=== PATIENT | male | born 2000 | race Caucasian/White ===

== ENCOUNTER 2021-04-28 12:22 | Emergency (ER) | payer BC, SELFPAY ==
--- NOTE | ~2021-04-28 | XR_ITS ---
EXAMINATION: XR foot LT min 3V DATE: 04/28/2021 15:53 INDICATION: Left foot pain and swelling. TECHNIQUE: 4 views of left foot were obtained. COMPARISON: None. FINDINGS: There is mild hallux valgus. No fracture. Joint spaces are normal. IMPRESSION: 1. Mild hallux valgus. Reviewed, dictated and finalized at location A. [facility]TER IMPRESSION: 1. Mild hallux valgus.
[2021-04-28 12:47] VITALS: BP 125/69; PULSE 102; RESP 16; TEMP 36.4; O2SAT 98
[2021-04-28] MEDS: IBUPROFEN 600 MG TABLET PO (15:49)
--- NOTE | 2021-04-28 16:38 | ED.GENADULT ---
HPI - General Adult General Chief complaint: Extremity Problem,Nontraumatic Stated complaint: L FOOT SWELLING Time Seen by Provider: 04/28/21 15:21 Source: patient Mode of arrival: ambulatory Limitations: no limitations History of Present Illness HPI narrative: Patient is a 20-year-old male with chief complaint of left foot pain and swelling over the past few days. Patient reports the pain is and swelling is worse in the evening after he has been standing and walking on the foot all day. Patient denies any known mechanisms of injury. He reports a discomfort is more to the lateral area of the left foot. He denies any wounds, ulcerations. Patient reports it is painful to walk on the foot and he has been using today to avoid weightbearing. Related Data Allergies Allergy/AdvReac Type Severity Reaction Status Date / Time No Known Allergies Allergy Mild Unverified 02/06/18 17:02 Review of Systems Review of Systems: CONSTITUTIONAL: Denies fever, chills, or sweats. EYES: Denies visual changes, redness, or discharge. ENT: Denies rhinorrhea, congestion, sore throat, or otalgia. CARDIOVASCULAR: Denies chest pain, palpitations, or edema. RESPIRATORY: Denies cough or dyspnea. GASTROINTESTINAL: Denies abdominal pain, nausea, vomiting, or diarrhea. GENITOURINARY: Denies dysuria or hematuria. SKIN: Denies rash or itching. MUSCULOSKELETAL: Pain and swelling to left foot denies back pain, joint pain, or myalgia. NEUROLOGIC: Denies headache, numbness, dizziness, or weakness. PSYCHIATRIC: Denies anxiety or depression. Exam Narrative: GENERAL: Well-appearing, well-nourished, and in no acute distress. HEAD: Normocephalic, atraumatic. EYES: PERRLA and EOMI. CHEST:No respiratory distress. No tachypnea. EXTREMITIES: Swelling to left foot, tenderness to lateral area of foot. Not erythematous. No open wounds or ulcers. Sensation and cap refill intact. Pulses present. SKIN: Warm, dry, no rash. NEURO: No focal deficits. Alert and oriented x3. PSYCH: Normal mood and affect. Course Vital Signs Vital signs: Vital Signs Temperature 97.5 F L 04/28/21 12:47 Pulse Rate 102 H 04/28/21 12:47 Respiratory Rate 16 04/28/21 12:47 Blood Pressure 125/69 04/28/21 12:47 Pulse Oximetry 98 04/28/21 12:47 Temperature 97.5 F L 04/28/21 12:47 Pulse Rate 102 H 04/28/21 12:47 Respiratory Rate 16 04/28/21 12:47 Blood Pressure 125/69 04/28/21 12:47 Pulse Oximetry 98 04/28/21 12:47 Medical Decision Making MDM Narrative Medical decision making narrative: No fracture noted on exam, no sign of cellulitis. Discussed with patient he likely has sprain/strain and needs follow up with primary care or orthopedics for further evaluation of tendons and ligaments. Discussed with patient that if redness, heat, or other signs of infection present then he needs to return. Differential Diagnosis Differential Diagnosis: fracture, sprain, strain, cellulitis, ulcer Vital Signs Vital Signs: Vital Signs Temperature 97.5 F L 04/28/21 12:47 Pulse Rate 102 H 04/28/21 12:47 Respiratory Rate 16 04/28/21 12:47 Blood Pressure 125/69 04/28/21 12:47 Pulse Oximetry 98 04/28/21 12:47 Temperature 97.5 F L 04/28/21 12:47 Pulse Rate 102 H 04/28/21 12:47 Respiratory Rate 16 04/28/21 12:47 Blood Pressure 125/69 04/28/21 12:47 Pulse Oximetry 98 04/28/21 12:47 Imaging Data Radiologist's impression: ITS Impressions Foot X-Ray 04/28/21 15:55 IMPRESSION: 1. Mild hallux valgus. Discharge Plan Discharge Clinical Impression: Foot sprain Qualifiers: Encounter type: initial encounter Laterality: left Qualified Code(s): S93.602A - Unspecified sprain of left foot, initial encounter Patient Disposition: Home, Self-Care Condition: Stable Instructions: Antibiotic Form, Foot Sprain (ED) Additional Instructions: Take tylenol and ibuprofen OTC as directed if you can tolerate them. Wear postop shoe for support.
== END 2021-04-28 17:34 | disposition home or self-care (01) ==
PROVIDERS: Emergency Provider Emergency Medicine
DX: S93.602A Unspecified sprain of left foot, initial encounter (principal); X58.XXXA Exposure to other specified factors, initial encounter
CPT/HCPCS: 73630; 99283; A9270